=== PATIENT | female | born 2000 | race American Indian/Alaskan Native ===

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

== ENCOUNTER 2021-03-12 11:55 | Emergency (ER) | payer SELFPAY ==
[2021-03-12 13:17] VITALS: BP 134/83
[2021-03-12] MEDS ORDERED: HYDROcodone/ACETAMINOPHEN 5-325 MG TAB PO ONE (14:28)
--- NOTE | 2021-03-12 14:34 | Emergency Department Report ---
ED General Adult HPI - General Chief complaint: Sore Throat Stated complaint: SORE THROAT SWELLING BUMPS IN THROAT Time Seen by Provider: 03/12/21 13:37 Source: patient Mode of arrival: Ambulatory Limitations: No Limitations - History of Present Illness Initial comments: 20-year-old -[place] female patient presents with complaints of sore throat x3 days. She states her pain is now radiating into her left ear. She denies any cough, chest pain, shortness of breath, rash, or decreased hearing. She rates her current pain as a 9/10 in severity. No recent known sick contacts per patient or loss of taste or smell. She denies any past medical history. -: Sudden - Related Data Previous Rx's Medication Instructions Recorded Last Taken Type Azithromycin [Zithromax Z-SRAVANI] 0 mg PO DAILY 5 Days #6 tab 03/12/21 Unknown Rx predniSONE [Deltasone] 20 mg PO BID 1 Days #3 tab 03/12/21 Unknown Rx Allergies Allergy/AdvReac Type Severity Reaction Status Date / Time No Known Allergies Allergy Verified 03/12/21 13:06 ED Review of Systems ROS: Stated complaint: SORE THROAT SWELLING BUMPS IN THROAT Other details as noted in HPI Constitutional: denies: chills, diaphoresis, fever, malaise, weakness ENT: ear pain, throat pain Respiratory: denies: cough, shortness of breath Cardiovascular: denies: chest pain Gastrointestinal: denies: nausea, vomiting Skin: denies: rash, lesions ED Past Medical Hx - Past Medical History Previous Medical History?: No Hx Hypertension: No Hx Diabetes: No Hx Deep Vein Thrombosis: No Hx Renal Disease: No Hx Sickle Cell Disease: No Hx Seizures: No Hx HIV: No - Social History Smoking Status: Never Smoker Substance Use Type: None - Medications Home Medications: Home Medications Medication Instructions Recorded Confirmed Last Taken Type Azithromycin [Zithromax Z-SRAVANI] 0 mg PO DAILY 5 Days #6 tab 03/12/21 Unknown Rx predniSONE [Deltasone] 20 mg PO BID 1 Days #3 tab 03/12/21 Unknown Rx ED Physical Exam - General Limitations: No Limitations General appearance: alert, in no apparent distress - Head Head exam: Present: atraumatic, normocephalic - Eye Eye exam: Present: normal appearance - ENT ENT exam: Present: TM's normal bilaterally - Expanded ENT Exam Expanded Mouth exam: Present: tongue normal. Absent: drooling, trismus, muffled voice Throat exam: Positive: tonsillar erythema (Bilateral), tonsillomegaly (Bilateral 1+), other (Uvula is midline). Negative: tonsillar exudate - Neck Neck exam: Present: full ROM, lymphadenopathy (Mild submandibular/anterior cervical) - Respiratory Respiratory exam: Present: normal lung sounds bilaterally. Absent: respiratory distress - Cardiovascular Cardiovascular Exam: Present: regular rate - Neurological Exam Neurological exam: Present: alert, oriented X3 - Psychiatric Psychiatric exam: Present: normal affect, normal mood - Skin Skin exam: Present: warm, dry, intact, normal color. Absent: rash ED Course Vital Signs 03/12/21 13:06 Temperature 98.0 F Pulse Rate 69 Respiratory 18 Rate Blood Pressure 134/83 O2 Sat by Pulse 98 Oximetry ED Medical Decision Making - Medical Decision Making 20-year-old -[place] female patient presents with complaints of sore throat x3 days. She states her pain is now radiating into her left ear. She denies any cough, chest pain, shortness of breath, rash, or decreased hearing. She rates her current pain as a 9/10 in severity. No recent known sick contacts per patient or loss of taste or smell. She denies any past medical history. Exam and history are consistent with bacterial pharyngitis. Z-Sravani prescription given. Patient to follow-up with primary care in 3 to 5 days. Discussed pr esumptive diagnosis, treatment plan, and signs and symptoms that should prompt immediate return to the emergency department in detail with patient who verbalized understanding. Critical care attestation.: If time is entered above; I have spent that time in minutes in the direct care of this critically ill patient, excluding procedure time. ED Disposition Clinical Impression: Acute bacterial pharyngitis Disposition: HOME / SELF CARE / HOMELESS Is pt being admited?: No Condition: Stable Instructions: Strep Throat, Adult Additional Instructions: 24 hours after taking the antibiotics you are no longer contagious. At that point, please throw away your toothbrush and purchase a new 1 and wash her pillowcases in your sheets so you do not reinfect yourself. Prescriptions: predniSONE [Deltasone] 20 mg PO BID 1 Days #3 tab Azithromycin [Zithromax Z-SRAVANI] 0 mg PO DAILY 5 Days #6 tab Forms: Work/School Release Form(ED)
[2021-03-12] MEDS ORDERED: predniSONE 20 MG TAB PO NR (15:00)
== END 2021-03-12 15:13 | disposition home or self-care (01) ==
LOC: ED 11:55
DX: J02.8 Acute pharyngitis due to other specified organisms (principal); B96.89 Other specified bacterial agents as the cause of diseases classified elsewhere; Z79.899 Other long term (current) drug therapy
CPT/HCPCS: 99282; J7512